=== PATIENT | female | born 1930 | race Caucasian/White ===

== ENCOUNTER 2017-09-09 14:46 | Inpatient (IN) | payer MEDICARE, OTHER ==
[~2017-09-09] VITALS: Ht 154.9 cm; Wt 66.8 kg
[~2017-09-09 14:46] MED LIST: ASPI81TA52 PO; ATOR80TA PO; CHLO25TA2 PO; CHOL2000 PO; DIPH25CA83 PO; HYDR-3193 PO; HYDR-3973 PO; IRBE300T43 PO; LEVO100T PO; METO100T7 PO; RABE20TA18 PO
[2017-09-10 12:30] VITALS: BP 150/59
[2017-09-10] MEDS ORDERED: potassium Cl 20 mEq SR tablet PO PRN (14:05)
[2017-09-10] MEDS ORDERED: mag hydrox/Alum hydrox/simeth 30ml oral suspension PO PRN (14:05)
[2017-09-10] MEDS ORDERED: magnesium hydroxide 30ml (MOM) UD suspension PO PRN (14:05)
[2017-09-10] MEDS ORDERED: morphine sulfate 8 MG/ML SYRINGE IV PRN (14:05)
[2017-09-10] MEDS ORDERED: HYDROcodone/acetaminophen 5mg/325mg tablet PO PRN (14:05)
[2017-09-10] MEDS ORDERED: magnesium 2GM in 50ml NS 50 ML IV PRN (14:05)
[2017-09-10] MEDS ORDERED: magnesium Cl slow-release 64mg tablet PO PRN (14:05)
[2017-09-10] MEDS ORDERED: acetaminophen 325mg tablet PO PRN (14:05)
[2017-09-10] MEDS ORDERED: potassium Cl 40MEQ/NS 500ml 500 ML IV PRN ×2 (14:05)
[2017-09-10] MEDS ORDERED: magnesium 4gm in 100ml NS 100 ML IV PRN (14:05)
[2017-09-10] MEDS ORDERED: HYDROcodone/acetaminophen 10/325mg tab PO PRN ×2 (14:20→20:00)
[2017-09-10] MEDS: morphine sulfate 8 MG/ML SYRINGE IV PRN (14:42)
[2017-09-10] MEDS: sodium chloride 0.45% 1,000 ML IV SCH (14:44)
[2017-09-10] MEDS: pantoprazole 40 MG vial IV SCH (14:46)
[2017-09-10] MEDS: levoFLOXACIN-Levaquin 500mg/D5 100 ML IV SCH (14:51)
[2017-09-10] MEDS: prednisone 10mg tablet PO SCH (14:55)
[2017-09-10 15:36] LABS: BASOPHILS # (AUTO) 0.1 X10'3 (0-0.2); BASOPHILS % (AUTO) 0.5 % (0-1); EOSINOPHILS # (AUTO) 0.2 X10'3 (0-0.9); EOSINOPHILS % (AUTO) 0.9 % (0-6); HEMATOCRIT 33.6 % (35.0-45.0); LYMPHOCYTES # (AUTO) 1.8 X10'3 (1.1-4.8); LYMPHOCYTES % (AUTO) 10.3 % (21-51); MEAN CORPUSCULAR HEMOGLOBIN 31.5 PG (27.0-31.0); MEAN CORPUSCULAR HGB CONC 32.8 % (33.0-36.5); MEAN PLATELET VOLUME 7.5 FL (7.4-10.4); MONOCYTES # (AUTO) 1.5 X10'3 (0-0.9); MONOCYTES % (AUTO) 8.4 % (2-12); NEUTROPHILS # (AUTO) 13.9 X10'3 (1.8-7.7); NEUTROPHILS % (AUTO) 79.9 % (42-75); PLATELET COUNT 265 X10'3 (140-440); RED CELL DISTRIBUTION WIDTH 12.6 % (11.5-14.5); WHITE BLOOD COUNT 17.4 X10'3 (4.5-11.0)
[2017-09-10 15:40] LABS: INR 1.2 INR; PARTIAL THROMBOPLASTIN TIME 32 SECONDS (22-32)
[2017-09-10 15:53] LABS: ALANINE AMINOTRANSFERASE 37 U/L (12-78); ALBUMIN 2.4 G/DL (3.4-5.0); ALBUMIN/GLOBULIN RATIO 0.6 (1.1-1.5); ALKALINE PHOSPHATASE 358 IU/L (46-116); ANION GAP 11 (8-16); ASPARTATE AMINO TRANSFERASE 28 U/L (10-37); BILIRUBIN,TOTAL 1.4 MG/DL (0.1-1.0); BLOOD UREA NITROGEN 21 MG/DL (7-18); BUN/CREATININE RATIO 10.9 (6.6-38.0); CALCIUM 7.1 MG/DL (8.5-10.1); CHLORIDE 102 MMOL/L (99-107); CREATININE 1.93 MG/DL (0.40-0.90); GLUCOSE 112 MG/DL (70-104); POTASSIUM 3.3 MMOL/L (3.5-5.1); SODIUM 139 MMOL/L (135-145); TOTAL PROTEIN 6.4 G/DL (6.4-8.2); eGFR 25 ML/MIN
[2017-09-10] MEDS: metroNIDAZOLE-Flagyl 500mg/NS 100 ML IV SCH (17:31)
[2017-09-10] MEDS: HYDROcodone/acetaminophen 10/325mg tab PO PRN (17:35)
[2017-09-10] MEDS: docusate sod 100mg capsule PO SCH (19:41)
[2017-09-10] MEDS ORDERED: LIDOcaine 1% 30ml vial 5 ML in potassium Cl 40MEQ/NS 500ml 500 ML IV ONE (19:50)
[2017-09-10 20:00] VITALS: BP 129/60
[2017-09-10 23:00] VITALS: BP 127/61
[2017-09-11] MEDS: metroNIDAZOLE-Flagyl 500mg/NS 100 ML IV SCH ×3 (01:47→16:18)
[2017-09-11 02:48] VITALS: BP 127/61
[2017-09-11] MEDS: sodium chloride 0.45% 1,000 ML IV SCH ×2 (04:22→15:01)
[2017-09-11 05:13] LABS: BASOPHILS % (AUTO) 0.1 % (0-1); EOSINOPHILS # (AUTO) 0.2 X10'3 (0-0.9); EOSINOPHILS % (AUTO) 1.1 % (0-6); HEMATOCRIT 32.3 % (35.0-45.0); HEMOGLOBIN 10.4 g/dl (12.0-16.0); LYMPHOCYTES # (AUTO) 1.4 X10'3 (1.1-4.8); LYMPHOCYTES % (AUTO) 9.4 % (21-51); MEAN CORPUSCULAR HGB CONC 32.2 % (33.0-36.5); MEAN CORPUSCULAR VOLUME 96.3 FL (78-98); MEAN PLATELET VOLUME 7.7 FL (7.4-10.4); MONOCYTES # (AUTO) 0.6 X10'3 (0-0.9); MONOCYTES % (AUTO) 4.2 % (2-12); NEUTROPHILS # (AUTO) 13.1 X10'3 (1.8-7.7); NEUTROPHILS % (AUTO) 85.2 % (42-75); PLATELET COUNT 258 X10'3 (140-440); RED BLOOD COUNT 3.35 X10'6 (4.20-5.60); RED CELL DISTRIBUTION WIDTH 12.4 % (11.5-14.5); WHITE BLOOD COUNT 15.4 X10'3 (4.5-11.0)
[2017-09-11 05:29] LABS: INR 1.2 INR; PARTIAL THROMBOPLASTIN TIME 34 SECONDS (22-32); PROTHROMBIN TIME 12.7 SECONDS (9.0-12.0)
[2017-09-11 05:53] LABS: ALANINE AMINOTRANSFERASE 31 U/L (12-78); ALBUMIN 2.1 G/DL (3.4-5.0); ALBUMIN/GLOBULIN RATIO 0.6 (1.1-1.5); ALKALINE PHOSPHATASE 314 IU/L (46-116); ANION GAP 12 (8-16); ASPARTATE AMINO TRANSFERASE 23 U/L (10-37); BILIRUBIN,TOTAL 1.1 MG/DL (0.1-1.0); BLOOD UREA NITROGEN 23 MG/DL (7-18); BUN/CREATININE RATIO 12.9 (6.6-38.0); CALCIUM 6.7 MG/DL (8.5-10.1); CHLORIDE 104 MMOL/L (99-107); CREATININE 1.78 MG/DL (0.40-0.90); GLUCOSE 118 MG/DL (70-104); SODIUM 139 MMOL/L (135-145); TOTAL PROTEIN 5.9 G/DL (6.4-8.2); eGFR 27 ML/MIN
[2017-09-11 07:32] LABS: MAGNESIUM 0.9 MG/DL (1.5-2.4)
[2017-09-11 08:00] VITALS: BP 128/66
[2017-09-11] MEDS: aspirin 81mg tablet.DR PO SCH (08:00)
[2017-09-11] MEDS: vitamin D (cholecalciferol) 1,000 unit tablet PO SCH (08:00)
[2017-09-11] MEDS: K and/or MAG REPLACEMENT MC SCH (08:00)
[2017-09-11] MEDS: docusate sod 100mg capsule PO SCH ×2 (09:14→20:01)
[2017-09-11] MEDS: pantoprazole 40 MG vial IV SCH (09:14)
[2017-09-11] MEDS: atorvastatin 20mg tablet PO SCH (09:14)
[2017-09-11] MEDS: prednisone 10mg tablet PO SCH (09:15)
[2017-09-11] MEDS: metoprolol succinate 25mg (24-HOUR) SR. Tablet PO SCH (09:15)
[2017-09-11] MEDS: losartan 50mg tablet PO SCH (09:15)
[2017-09-11] MEDS: levoTHYROXINE 100mcg tablet PO SCH (09:16)
[2017-09-11] MEDS: levoFLOXACIN-Levaquin 500mg/D5 100 ML IV SCH (10:35)
[2017-09-11 12:00] VITALS: BP 126/68
[2017-09-11] MEDS ORDERED: potassium Cl 40MEQ/NS 500ml 500 ML IV PRN ×2 (14:05)
[2017-09-11] MEDS ORDERED: magnesium Cl slow-release 64mg tablet PO PRN (14:05)
[2017-09-11] MEDS ORDERED: magnesium 2GM in 50ml NS 50 ML IV PRN (14:05)
[2017-09-11] MEDS ORDERED: potassium Cl 20 mEq SR tablet PO PRN ×2 (14:05)
[2017-09-11] MEDS ORDERED: magnesium 4gm in 100ml NS 100 ML IV PRN (14:05)
[2017-09-11] MEDS: lactobacillus rhamnosus 10,000 MMU CELLS/CAPSULE PO SCH (17:44)
[2017-09-11 20:00] VITALS: BP 106/52
[2017-09-11] MEDS: HYDROcodone/acetaminophen 10/325mg tab PO PRN (22:37)
[2017-09-11 23:00] VITALS: BP 127/63
[2017-09-12] VITALS (14 sets, daily range): BP systolic 127–160; BP diastolic 62–84
[2017-09-12] MEDS: metroNIDAZOLE-Flagyl 500mg/NS 100 ML IV SCH ×4 (00:23→23:47)
[2017-09-12] MEDS: sodium chloride 0.45% 1,000 ML IV SCH ×2 (05:28→23:16)
[2017-09-12 05:51] LABS: ALANINE AMINOTRANSFERASE 33 U/L (12-78); ALBUMIN 2.2 G/DL (3.4-5.0); ALBUMIN/GLOBULIN RATIO 0.6 (1.1-1.5); ALKALINE PHOSPHATASE 286 IU/L (46-116); ANION GAP 12 (8-16); ASPARTATE AMINO TRANSFERASE 31 U/L (10-37); BILIRUBIN,TOTAL 0.8 MG/DL (0.1-1.0); BLOOD UREA NITROGEN 29 MG/DL (7-18); BUN/CREATININE RATIO 15.4 (6.6-38.0); CALCIUM 7.1 MG/DL (8.5-10.1); CHLORIDE 102 MMOL/L (99-107); CREATININE 1.88 MG/DL (0.40-0.90); GLUCOSE 112 MG/DL (70-104); MAGNESIUM 2.5 MG/DL (1.5-2.4); POTASSIUM 3.1 MMOL/L (3.5-5.1); SODIUM 136 MMOL/L (135-145); TOTAL CARBON DIOXIDE 22.4 MMOL/L (24-32); TOTAL PROTEIN 5.9 G/DL (6.4-8.2); eGFR 25 ML/MIN
[2017-09-12 06:24] LABS: BASOPHILS % (AUTO) 0 % (0-1); EOSINOPHILS % (AUTO) 0.1 % (0-6); HEMATOCRIT 29.8 % (35.0-45.0); HEMOGLOBIN 10.2 g/dl (12.0-16.0); LYMPHOCYTES # (AUTO) 1.7 X10'3 (1.1-4.8); LYMPHOCYTES % (AUTO) 9.6 % (21-51); MEAN CORPUSCULAR HEMOGLOBIN 32.4 PG (27.0-31.0); MEAN CORPUSCULAR HGB CONC 34.2 % (33.0-36.5); MEAN CORPUSCULAR VOLUME 94.7 FL (78-98); MEAN PLATELET VOLUME 8.3 FL (7.4-10.4); MONOCYTES # (AUTO) 1.4 X10'3 (0-0.9); NEUTROPHILS # (AUTO) 14.5 X10'3 (1.8-7.7); NEUTROPHILS % (AUTO) 82.3 % (42-75); PLATELET COUNT 322 X10'3 (140-440); RED BLOOD COUNT 3.15 X10'6 (4.20-5.60); RED CELL DISTRIBUTION WIDTH 11.8 % (11.5-14.5); WHITE BLOOD COUNT 17.6 X10'3 (4.5-11.0)
[2017-09-12 06:31] LABS: INR 1.1 INR; PARTIAL THROMBOPLASTIN TIME 34 SECONDS (22-32); PROTHROMBIN TIME 11.8 SECONDS (9.0-12.0)
[2017-09-12] MEDS: aspirin 81mg tablet.DR PO SCH (08:00)
[2017-09-12] MEDS: docusate sod 100mg capsule PO SCH ×2 (08:00→20:00)
[2017-09-12] MEDS: lactobacillus rhamnosus 10,000 MMU CELLS/CAPSULE PO SCH ×2 (08:24→17:39)
[2017-09-12] MEDS: pantoprazole 40 MG vial IV SCH (08:25)
[2017-09-12] MEDS: losartan 50mg tablet PO SCH (08:25)
[2017-09-12] MEDS: atorvastatin 20mg tablet PO SCH (08:26)
[2017-09-12] MEDS: levoTHYROXINE 100mcg tablet PO SCH (08:26)
[2017-09-12] MEDS: vitamin D (cholecalciferol) 1,000 unit tablet PO SCH (08:27)
[2017-09-12] MEDS: metoprolol succinate 25mg (24-HOUR) SR. Tablet PO SCH (08:27)
[2017-09-12] MEDS: prednisone 10mg tablet PO SCH (08:28)
[2017-09-12] MEDS: potassium Cl 20 mEq SR tablet PO PRN ×3 (08:28→17:39)
[2017-09-12] MEDS: HYDROcodone/acetaminophen 10/325mg tab PO PRN (08:30)
[2017-09-12] MEDS: K and/or MAG REPLACEMENT MC SCH (08:31)
[2017-09-12] MEDS: levoFLOXACIN-Levaquin 500mg/D5 100 ML IV SCH (11:05)
[2017-09-12 14:50] LABS: C DIFF ANTIGEN POSITIVE (NEGATIVE); C DIFF SPECIMEN=DIARRHEA? ACCEPTABLE; C DIFFICILE TOXINS A&B POSITIVE (Neg)
[2017-09-12] MEDS: vancomycin 125mg/5ml ORAL solution 5ml UD bottle PO SCH ×2 (16:05→20:00)
[2017-09-12] MEDS ORDERED: BUPIVAcaine/PF 2.5 mg/ml (0.25%) 30ml vial ONE (19:04)
[2017-09-12] MEDS ORDERED: ceFAZolin 1000mg inj ONE (19:04)
[2017-09-12] MEDS ORDERED: morphine sulfate 8 MG/ML SYRINGE IV PRN (19:25)
[2017-09-12] MEDS ORDERED: HYDROmorphone 1 mg/ml syringe IV PRN (19:25)
[2017-09-12] MEDS ORDERED: ondansetron/PF 4mg/2ml inj IV PRN (19:25)
[2017-09-12] MEDS ORDERED: ringers solution, lacted 1,000 ML IV SCH (19:25)
[2017-09-12] MEDS ORDERED: fentaNYL/PF 50MCG/1 ML 2ML syringe ONE (19:36)
[2017-09-12] MEDS ORDERED: LIDOcaine 2% (20mg/ml) 5ml vial ONE (19:38)
[2017-09-12] MEDS ORDERED: rocuronium 10mg/ml inj IV ONE (19:38)
[2017-09-12] MEDS ORDERED: propofol inj 20 ML IV ONE (19:38)
[2017-09-12 19:45] LABS: ISTAT CREATININE 1.6 mg/dL (0.6-1.1); ISTAT HGB 9.5 g/dl (12.0-16.0); ISTAT IONIZED CALCIUM 0.98 mmol/L (1.03-1.32); ISTAT K 3.9 mmol/L (3.5-5.1); POC BUN/CREATININE RATIO 14.4 (6.6-38.0)
[2017-09-12] MEDS ORDERED: sevoflurane 250ml liquid IH ONE (20:02)
[2017-09-12] MEDS ORDERED: hydrALAZINE 20mg/ml inj. IV ONE (20:02)
[2017-09-12] MEDS ORDERED: neostigmine methylsulfate 1 MG/ML 10ml vial ONE (20:48)
[2017-09-12] MEDS ORDERED: dexamethasone sod phosphate 4mg/ml inj. ONE (20:48)
[2017-09-12] MEDS ORDERED: ondansetron/PF 4mg/2ml inj ONE (20:48)
[2017-09-12] MEDS ORDERED: glycopyrrolate 0.2mg/ml inj ONE (20:48)
[2017-09-12] MEDS: morphine sulfate 8 MG/ML SYRINGE IV PRN ×2 (21:17→21:33)
[2017-09-12] MEDS ORDERED: morphine sulfate 8 MG/ML SYRINGE IV ONE (22:35)
[2017-09-13] VITALS (7 sets, daily range): BP systolic 139–187; BP diastolic 66–81
[2017-09-13] MEDS: normal saline 1000ml 1,000 ML IV SCH (00:49)
[2017-09-13] MEDS ORDERED: naloxone 0.4 mg/ml inj IV PRN (00:50)
[2017-09-13] MEDS ORDERED: CADD PCA waste documentation MC PRN (00:50)
[2017-09-13] MEDS: HYDROmorphone/NS 1 mg/ml CADD 50 ML IV SCH ×12 (01:34→22:40)
[2017-09-13] MEDS: vancomycin 125mg/5ml ORAL solution 5ml UD bottle PO SCH ×4 (02:03→20:48)
[2017-09-13 05:23] LABS: BASOPHILS % (AUTO) 0 % (0-1); EOSINOPHILS % (AUTO) 0 % (0-6); HEMATOCRIT 30.2 % (35.0-45.0); HEMOGLOBIN 9.9 g/dl (12.0-16.0); LYMPHOCYTES # (AUTO) 1.1 X10'3 (1.1-4.8); LYMPHOCYTES % (AUTO) 8.6 % (21-51); MEAN CORPUSCULAR HEMOGLOBIN 31.2 PG (27.0-31.0); MEAN CORPUSCULAR HGB CONC 32.8 % (33.0-36.5); MEAN CORPUSCULAR VOLUME 95.1 FL (78-98); MEAN PLATELET VOLUME 7.5 FL (7.4-10.4); MONOCYTES # (AUTO) 0.4 X10'3 (0-0.9); NEUTROPHILS # (AUTO) 11.2 X10'3 (1.8-7.7); NEUTROPHILS % (AUTO) 88.4 % (42-75); PLATELET COUNT 310 X10'3 (140-440); RED BLOOD COUNT 3.18 X10'6 (4.20-5.60); WHITE BLOOD COUNT 12.6 X10'3 (4.5-11.0)
[2017-09-13 05:28] LABS: ALANINE AMINOTRANSFERASE 28 U/L (12-78); ALBUMIN 2.1 G/DL (3.4-5.0); ALBUMIN/GLOBULIN RATIO 0.6 (1.1-1.5); ALKALINE PHOSPHATASE 249 IU/L (46-116); ANION GAP 9 (8-16); ASPARTATE AMINO TRANSFERASE 35 U/L (10-37); BILIRUBIN,TOTAL 0.6 MG/DL (0.1-1.0); BLOOD UREA NITROGEN 23 MG/DL (7-18); BUN/CREATININE RATIO 14.3 (6.6-38.0); CALCIUM 7.4 MG/DL (8.5-10.1); CHLORIDE 105 MMOL/L (99-107); CREATININE 1.61 MG/DL (0.40-0.90); GLUCOSE 129 MG/DL (70-104); MAGNESIUM 1.6 MG/DL (1.5-2.4); POTASSIUM 4.5 MMOL/L (3.5-5.1); SODIUM 138 MMOL/L (135-145); TOTAL CARBON DIOXIDE 23.8 MMOL/L (24-32); TOTAL PROTEIN 5.6 G/DL (6.4-8.2); eGFR 30 ML/MIN
[2017-09-13] MEDS: sodium chloride 0.45% 1,000 ML IV SCH ×2 (06:09→22:39)
[2017-09-13] MEDS ORDERED: pantoprazole 40mg Tablet.DR PO SCH (07:30)
[2017-09-13] MEDS: metoprolol succinate 25mg (24-HOUR) SR. Tablet PO SCH (07:46)
[2017-09-13] MEDS: metroNIDAZOLE-Flagyl 500mg/NS 100 ML IV SCH ×3 (07:46→23:48)
[2017-09-13] MEDS: atorvastatin 20mg tablet PO SCH (07:46)
[2017-09-13] MEDS: losartan 50mg tablet PO SCH (07:47)
[2017-09-13] MEDS: levoTHYROXINE 100mcg tablet PO SCH (07:47)
[2017-09-13] MEDS: aspirin 81mg tablet.DR PO SCH (07:47)
[2017-09-13] MEDS: lactobacillus rhamnosus 10,000 MMU CELLS/CAPSULE PO SCH ×2 (07:47→17:19)
[2017-09-13] MEDS: prednisone 10mg tablet PO SCH (07:49)
[2017-09-13] MEDS: vitamin D (cholecalciferol) 1,000 unit tablet PO SCH (07:49)
[2017-09-13] MEDS: docusate sod 100mg capsule PO SCH ×2 (07:49→20:00)
[2017-09-13] MEDS: K and/or MAG REPLACEMENT MC SCH (08:00)
[2017-09-13] MEDS: ondansetron/PF 4mg/2ml inj IV PRN (08:13)
[2017-09-13] MEDS: levoFLOXACIN-Levaquin 500mg/D5 100 ML IV SCH (11:44)
[2017-09-13] MEDS ORDERED: hydrALAZINE 20mg/ml inj. IV PRN (17:50)
[2017-09-13] MEDS: amLODIPine 5mg tablet PO SCH (18:12)
[2017-09-13] MEDS: famotidine 20mg tablet PO SCH (20:47)
[2017-09-14] VITALS: BP 150/74
[2017-09-14] MEDS: HYDROmorphone/NS 1 mg/ml CADD 50 ML IV SCH ×9 (01:00→17:00)
[2017-09-14] MEDS: vancomycin 125mg/5ml ORAL solution 5ml UD bottle PO SCH ×4 (02:23→19:30)
[2017-09-14 06:43] LABS: BASOPHILS % (AUTO) 0.1 % (0-1); EOSINOPHILS # (AUTO) 0.2 X10'3 (0-0.9); EOSINOPHILS % (AUTO) 1.4 % (0-6); HEMATOCRIT 31.3 % (35.0-45.0); HEMOGLOBIN 10.2 g/dl (12.0-16.0); LYMPHOCYTES # (AUTO) 1.4 X10'3 (1.1-4.8); LYMPHOCYTES % (AUTO) 11.9 % (21-51); MEAN CORPUSCULAR HEMOGLOBIN 31.3 PG (27.0-31.0); MEAN CORPUSCULAR HGB CONC 32.7 % (33.0-36.5); MEAN CORPUSCULAR VOLUME 95.7 FL (78-98); MEAN PLATELET VOLUME 7.3 FL (7.4-10.4); MONOCYTES # (AUTO) 1.3 X10'3 (0-0.9); MONOCYTES % (AUTO) 11.2 % (2-12); NEUTROPHILS # (AUTO) 8.6 X10'3 (1.8-7.7); NEUTROPHILS % (AUTO) 75.4 % (42-75); PLATELET COUNT 300 X10'3 (140-440); RED BLOOD COUNT 3.27 X10'6 (4.20-5.60); RED CELL DISTRIBUTION WIDTH 12.8 % (11.5-14.5); WHITE BLOOD COUNT 11.4 X10'3 (4.5-11.0)
[2017-09-14 07:20] LABS: ALANINE AMINOTRANSFERASE 28 U/L (12-78); ALBUMIN 2.1 G/DL (3.4-5.0); ALBUMIN/GLOBULIN RATIO 0.6 (1.1-1.5); ALKALINE PHOSPHATASE 243 IU/L (46-116); ANION GAP 10 (8-16); ASPARTATE AMINO TRANSFERASE 32 U/L (10-37); BILIRUBIN,TOTAL 0.6 MG/DL (0.1-1.0); BLOOD UREA NITROGEN 22 MG/DL (7-18); BUN/CREATININE RATIO 14.1 (6.6-38.0); CHLORIDE 104 MMOL/L (99-107); CREATININE 1.56 MG/DL (0.40-0.90); GLUCOSE 92 MG/DL (70-104); MAGNESIUM 1.4 MG/DL (1.5-2.4); SODIUM 136 MMOL/L (135-145); TOTAL CARBON DIOXIDE 22.4 MMOL/L (24-32); TOTAL PROTEIN 5.5 G/DL (6.4-8.2); eGFR 31 ML/MIN
[2017-09-14 08:00] VITALS: BP 174/73
[2017-09-14] MEDS: K and/or MAG REPLACEMENT MC SCH (08:00)
[2017-09-14] MEDS: docusate sod 100mg capsule PO SCH ×2 (08:00→20:00)
[2017-09-14] MEDS: metoprolol succinate 25mg (24-HOUR) SR. Tablet PO SCH (08:25)
[2017-09-14] MEDS: atorvastatin 20mg tablet PO SCH (08:26)
[2017-09-14] MEDS: amLODIPine 5mg tablet PO SCH (08:27)
[2017-09-14] MEDS: famotidine 20mg tablet PO SCH ×2 (08:27→19:30)
[2017-09-14] MEDS: aspirin 81mg tablet.DR PO SCH (08:27)
[2017-09-14] MEDS: vitamin D (cholecalciferol) 1,000 unit tablet PO SCH (08:27)
[2017-09-14] MEDS: prednisone 10mg tablet PO SCH (08:27)
[2017-09-14] MEDS: losartan 50mg tablet PO SCH (08:28)
[2017-09-14] MEDS: metroNIDAZOLE-Flagyl 500mg/NS 100 ML IV SCH ×2 (08:28→17:13)
[2017-09-14] MEDS: levoTHYROXINE 100mcg tablet PO SCH (08:28)
[2017-09-14] MEDS: lactobacillus rhamnosus 10,000 MMU CELLS/CAPSULE PO SCH ×2 (08:28→17:52)
[2017-09-14] MEDS: ondansetron/PF 4mg/2ml inj IV PRN (11:56)
[2017-09-14 12:00] VITALS: BP 128/84
[2017-09-14] MEDS ORDERED: morphine 5 MG/ML injection IV PRN (13:40)
[2017-09-14] MEDS ORDERED: ondansetron/PF 4mg/2ml inj IV ONE (15:05)
[2017-09-14] MEDS: levoFLOXACIN-Levaquin 500mg/D5 100 ML IV SCH (15:09)
[2017-09-14] MEDS: HYDROcodone/acetaminophen 10/325mg tab PO PRN (15:58)
[2017-09-14] MEDS ORDERED: magnesium 4gm in 100ml NS 100 ML IV PRN (17:10)
[2017-09-14] MEDS ORDERED: potassium Cl 20 mEq SR tablet PO PRN ×2 (17:10)
[2017-09-14] MEDS ORDERED: magnesium 2GM in 50ml NS 50 ML IV PRN (17:10)
[2017-09-14] MEDS ORDERED: potassium Cl 40MEQ/NS 500ml 500 ML IV PRN (17:10)
[2017-09-14] MEDS: sodium chloride 0.45% 1,000 ML IV SCH (17:14)
[2017-09-14] MEDS: magnesium Cl slow-release 64mg tablet PO PRN (17:52)
[2017-09-14] MEDS: metoclopramide 5 mg/ml inj IV PRN (17:52)
[2017-09-14 18:00] VITALS: BP 131/60
[2017-09-15] MEDS: metroNIDAZOLE-Flagyl 500mg/NS 100 ML IV SCH ×3 (00:02→15:40)
[2017-09-15] MEDS: normal saline 1000ml 1,000 ML IV SCH (00:49)
[2017-09-15 01:30] VITALS: BP 151/81
[2017-09-15] MEDS: vancomycin 125mg/5ml ORAL solution 5ml UD bottle PO SCH ×4 (02:17→19:32)
[2017-09-15 05:41] LABS: BASOPHILS % (AUTO) 0.1 % (0-1); EOSINOPHILS # (AUTO) 0.2 X10'3 (0-0.9); EOSINOPHILS % (AUTO) 1.6 % (0-6); HEMOGLOBIN 10.7 g/dl (12.0-16.0); LYMPHOCYTES # (AUTO) 1.8 X10'3 (1.1-4.8); LYMPHOCYTES % (AUTO) 13.1 % (21-51); MEAN CORPUSCULAR HEMOGLOBIN 31.6 PG (27.0-31.0); MEAN CORPUSCULAR HGB CONC 33.3 % (33.0-36.5); MEAN CORPUSCULAR VOLUME 94.8 FL (78-98); MEAN PLATELET VOLUME 7.4 FL (7.4-10.4); MONOCYTES # (AUTO) 1.7 X10'3 (0-0.9); NEUTROPHILS # (AUTO) 10.4 X10'3 (1.8-7.7); NEUTROPHILS % (AUTO) 73.2 % (42-75); PLATELET COUNT 308 X10'3 (140-440); RED BLOOD COUNT 3.38 X10'6 (4.20-5.60); RED CELL DISTRIBUTION WIDTH 12.6 % (11.5-14.5); WHITE BLOOD COUNT 14.1 X10'3 (4.5-11.0)
[2017-09-15 06:02] LABS: ALANINE AMINOTRANSFERASE 26 U/L (12-78); ALBUMIN 2.2 G/DL (3.4-5.0); ALBUMIN/GLOBULIN RATIO 0.6 (1.1-1.5); ALKALINE PHOSPHATASE 232 IU/L (46-116); ANION GAP 8 (8-16); ASPARTATE AMINO TRANSFERASE 40 U/L (10-37); BILIRUBIN,TOTAL 0.6 MG/DL (0.1-1.0); BLOOD UREA NITROGEN 17 MG/DL (7-18); BUN/CREATININE RATIO 9.8 (6.6-38.0); CALCIUM 7.8 MG/DL (8.5-10.1); CHLORIDE 104 MMOL/L (99-107); CREATININE 1.74 MG/DL (0.40-0.90); GLUCOSE 92 MG/DL (70-104); MAGNESIUM 1.1 MG/DL (1.5-2.4); POTASSIUM 3.8 MMOL/L (3.5-5.1); SODIUM 135 MMOL/L (135-145); TOTAL CARBON DIOXIDE 22.9 MMOL/L (24-32); TOTAL PROTEIN 5.7 G/DL (6.4-8.2); eGFR 28 ML/MIN
[2017-09-15 08:00] VITALS: BP 169/92
[2017-09-15] MEDS: docusate sod 100mg capsule PO SCH (08:00)
[2017-09-15] MEDS: K and/or MAG REPLACEMENT MC SCH (08:00)
[2017-09-15] MEDS: lactobacillus rhamnosus 10,000 MMU CELLS/CAPSULE PO SCH ×2 (08:25→17:07)
[2017-09-15] MEDS: levoFLOXACIN-Levaquin 500mg/D5 100 ML IV SCH (08:25)
[2017-09-15] MEDS: atorvastatin 20mg tablet PO SCH (08:27)
[2017-09-15] MEDS: aspirin 81mg tablet.DR PO SCH (08:27)
[2017-09-15] MEDS: losartan 50mg tablet PO SCH (08:27)
[2017-09-15] MEDS: metoprolol succinate 25mg (24-HOUR) SR. Tablet PO SCH (08:28)
[2017-09-15] MEDS: amLODIPine 5mg tablet PO SCH (08:28)
[2017-09-15] MEDS: famotidine 20mg tablet PO SCH ×2 (08:28→19:32)
[2017-09-15] MEDS: levoTHYROXINE 100mcg tablet PO SCH (08:28)
[2017-09-15] MEDS: vitamin D (cholecalciferol) 1,000 unit tablet PO SCH (08:29)
[2017-09-15] MEDS: sodium chloride 0.45% 1,000 ML IV SCH ×2 (08:38→16:01)
[2017-09-15] MEDS: prednisone 10mg tablet PO SCH (08:45)
[2017-09-15] MEDS: ondansetron/PF 4mg/2ml inj IV PRN (08:45)
[2017-09-15] MEDS: metoclopramide 5 mg/ml inj IV PRN (11:06)
[2017-09-15 12:55] VITALS: BP 132/86
[2017-09-15] MEDS: magnesium Cl slow-release 64mg tablet PO PRN ×2 (15:40→20:47)
[2017-09-15] MEDS: diphenhydrAMINE 25mg capsule PO PRN (19:32)
[2017-09-15] MEDS: heparin, porcine 5000 units/ml vial SQ SCH (19:33)
[2017-09-15 20:00] VITALS: BP 164/69
[2017-09-16] VITALS: BP 147/82
[2017-09-16] MEDS: metroNIDAZOLE-Flagyl 500mg/NS 100 ML IV SCH ×3 (01:33→17:06)
[2017-09-16] MEDS: vancomycin 125mg/5ml ORAL solution 5ml UD bottle PO SCH ×4 (02:21→20:01)
[2017-09-16] MEDS: HYDROcodone/acetaminophen 10/325mg tab PO PRN ×2 (03:57→17:05)
[2017-09-16 06:16] LABS: BASOPHILS % (AUTO) 0.1 % (0-1); EOSINOPHILS # (AUTO) 0.1 X10'3 (0-0.9); EOSINOPHILS % (AUTO) 0.7 % (0-6); HEMATOCRIT 26.8 % (35.0-45.0); LYMPHOCYTES # (AUTO) 1.4 X10'3 (1.1-4.8); LYMPHOCYTES % (AUTO) 13.1 % (21-51); MEAN CORPUSCULAR HEMOGLOBIN 31.9 PG (27.0-31.0); MEAN CORPUSCULAR HGB CONC 33.7 % (33.0-36.5); MEAN CORPUSCULAR VOLUME 94.5 FL (78-98); MEAN PLATELET VOLUME 7.2 FL (7.4-10.4); MONOCYTES # (AUTO) 1.8 X10'3 (0-0.9); MONOCYTES % (AUTO) 16.4 % (2-12); NEUTROPHILS # (AUTO) 7.6 X10'3 (1.8-7.7); NEUTROPHILS % (AUTO) 69.7 % (42-75); PLATELET COUNT 248 X10'3 (140-440); RED BLOOD COUNT 2.84 X10'6 (4.20-5.60); RED CELL DISTRIBUTION WIDTH 12.5 % (11.5-14.5); WHITE BLOOD COUNT 10.9 X10'3 (4.5-11.0)
[2017-09-16 06:26] LABS: ANION GAP 10 (8-16); BLOOD UREA NITROGEN 14 MG/DL (7-18); BUN/CREATININE RATIO 8.5 (6.6-38.0); CALCIUM 7.2 MG/DL (8.5-10.1); CHLORIDE 106 MMOL/L (99-107); CREATININE 1.65 MG/DL (0.40-0.90); GLUCOSE 98 MG/DL (70-104); SODIUM 141 MMOL/L (135-145); TOTAL CARBON DIOXIDE 25.4 MMOL/L (24-32); eGFR 29 ML/MIN
[2017-09-16 07:00] VITALS: BP 146/72
[2017-09-16 07:08] LABS: MAGNESIUM 0.9 MG/DL (1.5-2.4); POTASSIUM 2.8 MMOL/L (3.5-5.1)
[2017-09-16] MEDS: lactobacillus rhamnosus 10,000 MMU CELLS/CAPSULE PO SCH ×2 (08:16→17:05)
[2017-09-16] MEDS: aspirin 81mg tablet.DR PO SCH (08:17)
[2017-09-16] MEDS: levoTHYROXINE 100mcg tablet PO SCH (08:17)
[2017-09-16] MEDS: predniSONE 5mg tablet PO SCH (08:17)
[2017-09-16] MEDS: losartan 50mg tablet PO SCH (08:17)
[2017-09-16] MEDS: vitamin D (cholecalciferol) 1,000 unit tablet PO SCH (08:17)
[2017-09-16] MEDS: atorvastatin 20mg tablet PO SCH (08:17)
[2017-09-16] MEDS: amLODIPine 5mg tablet PO SCH (08:17)
[2017-09-16] MEDS: famotidine 20mg tablet PO SCH ×2 (08:17→20:01)
[2017-09-16] MEDS: metoprolol succinate 25mg (24-HOUR) SR. Tablet PO SCH (08:17)
[2017-09-16] MEDS: heparin, porcine 5000 units/ml vial SQ SCH ×2 (08:18→20:03)
[2017-09-16] MEDS: K and/or MAG REPLACEMENT MC SCH (08:29)
[2017-09-16] MEDS: levoFLOXACIN-Levaquin 500mg/D5 100 ML IV SCH (09:59)
[2017-09-16 11:00] VITALS: BP 95/46
[2017-09-16] MEDS: potassium Cl 40MEQ/NS 500ml 500 ML IV PRN ×2 (12:14→17:07)
[2017-09-16] MEDS: sodium chloride 0.45% 1,000 ML IV SCH (14:13)
[2017-09-16 14:22] VITALS: BP 106/59
[2017-09-16] MEDS: LACTOSE-FREE FOOD 237ML (BOOST) PO SCH ×2 (18:23→19:11)
[2017-09-16] MEDS: diphenhydrAMINE 25mg capsule PO PRN (22:22)
[2017-09-17] VITALS: BP 136/78
[2017-09-17] MEDS: metroNIDAZOLE-Flagyl 500mg/NS 100 ML IV SCH ×2 (00:03→08:51)
[2017-09-17] MEDS: vancomycin 125mg/5ml ORAL solution 5ml UD bottle PO SCH (02:22)
[2017-09-17] MEDS: sodium chloride 0.45% 1,000 ML IV SCH (02:23)
[2017-09-17] MEDS: HYDROcodone/acetaminophen 10/325mg tab PO PRN ×2 (02:47→10:22)
[2017-09-17 06:37] LABS: BASOPHILS # (AUTO) 0.1 X10'3 (0-0.2); BASOPHILS % (AUTO) 0.6 % (0-1); EOSINOPHILS # (AUTO) 0.3 X10'3 (0-0.9); EOSINOPHILS % (AUTO) 2.9 % (0-6); HEMATOCRIT 27.2 % (35.0-45.0); HEMOGLOBIN 9.2 g/dl (12.0-16.0); LYMPHOCYTES # (AUTO) 1.3 X10'3 (1.1-4.8); LYMPHOCYTES % (AUTO) 12.5 % (21-51); MEAN CORPUSCULAR HEMOGLOBIN 31.7 PG (27.0-31.0); MEAN CORPUSCULAR HGB CONC 33.8 % (33.0-36.5); MEAN CORPUSCULAR VOLUME 93.7 FL (78-98); MEAN PLATELET VOLUME 6.4 FL (7.4-10.4); MONOCYTES # (AUTO) 1.3 X10'3 (0-0.9); MONOCYTES % (AUTO) 12.8 % (2-12); NEUTROPHILS # (AUTO) 7.5 X10'3 (1.8-7.7); NEUTROPHILS % (AUTO) 71.2 % (42-75); PLATELET COUNT 273 X10'3 (140-440); RED BLOOD COUNT 2.91 X10'6 (4.20-5.60); RED CELL DISTRIBUTION WIDTH 12.7 % (11.5-14.5); WHITE BLOOD COUNT 10.5 X10'3 (4.5-11.0)
[2017-09-17 07:00] VITALS: BP 147/71
[2017-09-17 07:16] LABS: ANION GAP 7 (8-16); BLOOD UREA NITROGEN 11 MG/DL (7-18); CALCIUM 6.9 MG/DL (8.5-10.1); CHLORIDE 108 MMOL/L (99-107); CREATININE 1.57 MG/DL (0.40-0.90); GLUCOSE 97 MG/DL (70-104); MAGNESIUM 1.7 MG/DL (1.5-2.4); SODIUM 141 MMOL/L (135-145); TOTAL CARBON DIOXIDE 25.8 MMOL/L (24-32); eGFR 31 ML/MIN
[2017-09-17] MEDS: K and/or MAG REPLACEMENT MC SCH (08:00)
[2017-09-17] MEDS: vitamin D (cholecalciferol) 1,000 unit tablet PO SCH (08:51)
[2017-09-17] MEDS: losartan 50mg tablet PO SCH (08:51)
[2017-09-17] MEDS: atorvastatin 20mg tablet PO SCH (08:52)
[2017-09-17] MEDS: lactobacillus rhamnosus 10,000 MMU CELLS/CAPSULE PO SCH (08:52)
[2017-09-17] MEDS: famotidine 20mg tablet PO SCH (08:52)
[2017-09-17] MEDS: metoprolol succinate 25mg (24-HOUR) SR. Tablet PO SCH (08:52)
[2017-09-17] MEDS: aspirin 81mg tablet.DR PO SCH (08:52)
[2017-09-17] MEDS: levoTHYROXINE 100mcg tablet PO SCH (08:52)
[2017-09-17] MEDS: predniSONE 5mg tablet PO SCH (08:52)
[2017-09-17] MEDS: amLODIPine 5mg tablet PO SCH (08:52)
[2017-09-17] MEDS: heparin, porcine 5000 units/ml vial SQ SCH (08:53)
[2017-09-17] MEDS ORDERED: vancomycin 250MG/10ML UD oral solution 10ML BOTTLE PO SCH (09:20)
[2017-09-17 11:47] VITALS: BP 138/58
[2017-09-17] MEDS ORDERED: VANC250C12 MT (12:36)
[2017-09-17] MEDS: LACTOSE-FREE FOOD 237ML (BOOST) PO SCH (13:00)
[2017-09-18] MEDS ORDERED: levoFLOXACIN-Levaquin 250mg/D5 50 ML IV SCH (08:00)
== END 2017-09-17 16:40 | disposition home health service (06) | DRG 418 ==
LOC: SUR 3N 09-10 12:21
PROVIDERS: ADMIT Internal Medicine; ATTEND Family Medicine
PROC: 0FN44ZZ Release Gallbladder, Percutaneous Endoscopic Approach (ICD-10-PCS; 2017-09-12)
PROC: 0FT44ZZ Resection of Gallbladder, Percutaneous Endoscopic Approach (ICD-10-PCS; principal; 2017-09-12 20:02)
DX: K81.2 Acute cholecystitis with chronic cholecystitis (principal); A04.72 Enterocolitis due to Clostridium difficile, not specified as recurrent; D68.9 Coagulation defect, unspecified; K56.7 Ileus, unspecified; E83.42 Hypomagnesemia; J44.9 Chronic obstructive pulmonary disease, unspecified; E03.9 Hypothyroidism, unspecified; E78.5 Hyperlipidemia, unspecified; G89.4 Chronic pain syndrome; K82.8 Other specified diseases of gallbladder; E87.6 Hypokalemia; I10 Essential (primary) hypertension; M10.9 Gout, unspecified; Z86.73 Personal history of transient ischemic attack (TIA), and cerebral infarction without residual deficits; Z87.891 Personal history of nicotine dependence
CPT/HCPCS: 36415; 71010; 80047; 80048; 80053; 83735; 84443; 85025; 85610; 85730; 87070; 87324; 87449; 93005; A6209; A6212; A6251; A7000; C9113; J0360; J0690; J1100; J1170; J1644; J1956; J2001; J2270; J2405; J2704; J2710; J2765; J3010; J3475; J3480; J3490; J7030; J7120; J7512; Q0163